=== PATIENT | female | born 1990 | race African-American/Black ===

== ENCOUNTER 2019-06-17 15:18 | Emergency (ER) | payer BC, OTHER ==
[2019-06-17 15:41] VITALS: BP 108/76; PULSE 102; TEMP 99.3; BMI 26.0
--- NOTE | 2019-06-17 15:41 | PDOC ---
Rapid Medical Evaluation Chief Complaint: Weakness Time Seen by Provider: 06/17/19 15:36 Medical Evaluation: Allergies Allergy/AdvReac Type Severity Reaction Status Date / Time shellfish derived Allergy Hives Verified 05/16/15 06:48 06/17/19 15:37 I have performed a brief in-person evaluation of this patient. The patient presents with a chief complaint of:HX of MS- c/o fevers/ bodyaches - no cough/ear or throat pain Pertinent physical exam findings: pale/ quiet- took cold med ~ 30ms ago I have ordered the following: Influenza The patient will proceed to the ED for further evaluation. 06/17/19 15:38 06/17/19 15:39 Discharge Disposition - Discharge Dispostion Condition at time of disposition: Stable - Referrals - Patient Instructions - Post Discharge Activity
--- NOTE | 2019-06-17 16:02 | PDOC ---
History of Present Illness - General Chief Complaint: Cold Symptoms Stated Complaint: COLD SYMPTOMS/WEAKNESS Time Seen by Provider: 06/17/19 15:36 History Source: Patient - History of Present Illness Initial Comments: 06/17/19 16:36 29-year-old female complaining of body aches, fever, sneezing since yesterday. Patient reports taking Tami-Rogers plus with no relief in pain. No past medical history Past History - Past Medical History Allergies/Adverse Reactions: Allergies Allergy/AdvReac Type Severity Reaction Status Date / Time shellfish derived Allergy Hives Verified 05/16/15 06:48 Home Medications: Ambulatory Orders predniSONE [Deltasone -] 50 mg PO DAILY 05/15/15 predniSONE [Deltasone -] 40 mg PO DAILY tablet 05/19/15 Oseltamivir Phosphate [Tamiflu -] 75 mg PO BID #10 capsule 06/17/19 COPD: No Other medical history: Mult Sclerosis - Psycho Social/Smoking Cessation Hx Smoking History: Never smoked Have you smoked in the past 12 months: Yes Number of Cigarettes Smoked Daily: 2 'Breaking Loose' booklet given: 05/16/15 Hx Alcohol Use: Yes (social use) Drug/Substance Use Hx: No Substance Use Type: None Hx Substance Use Treatment: No *Physical Exam - Vital Signs Last Vital Signs Temp Pulse Resp BP Pulse Ox 99.3 F 102 H 19 108/76 99 06/17/19 15:36 06/17/19 15:36 06/17/19 15:36 06/17/19 15:36 06/17/19 15:36 - Physical Exam General Appearance: Yes: Appropriately Dressed Respiratory/Chest: positive: Lungs Clear, Normal Breath Sounds Cardiovascular: positive: Regular Rhythm, Regular Rate Gastrointestinal/Abdominal: positive: Normal Bowel Sounds, Soft. negative: Tender Extremity: positive: Normal Capillary Refill, Normal Inspection, Normal Range of Motion Integumentary: positive: Normal Color, Dry, Warm Neurologic: positive: Fully Oriented, Alert ED Progress Note - Progress Note Progress Note: 06/17/19 16:40 A: influenza P: Tamiflu influenza B + PCP follow up Discharge - Discharge Information Problems reviewed: Yes Clinical Impression/Diagnosis: Influenza B Condition: Stable Disposition: HOME - Additional Discharge Information Prescriptions: Oseltamivir Phosphate [Tamiflu -] 75 mg PO BID #10 capsule - Follow up/Referral Referrals: Venice Matias MD [Primary Care Provider] - - Patient Discharge Instructions Patient Printed Discharge Instructions: Influenza Additional Instructions: Drink plenty of fluids. Take Tamiflu as prescribed Give Tylenol every 4 hours as needed for fever Give ibuprofen then every 6 hours as needed for fever Follow-up with your doctor as soon as possible. Return to the emergency room if symptoms worsen. - Post Discharge Activity Work/Back to School Note: Back to Work
[2019-06-17] MEDS ORDERED: ACETAMINOPHEN 500 MG TABLET (FP) PO ONE ×2 (16:03→16:32)
[2019-06-17] MEDS ORDERED: IBUPROFEN 600 MG TABLET (FP) PO ONE ×2 (16:26→16:30)
[2019-06-17] MEDS ORDERED: OSELTAMIVIR PHOSPHATE 75 MG CAPSULE PO ONE (16:30)
[2019-06-17] MEDS ORDERED: ACETAMINOPHEN 325 MG TABLET (FP) ONE ×2 (16:32→16:33)
[2019-06-17] MEDS ORDERED: OSELTAMIVIR PHOSPHATE 75 MG CAPSULE ONE (16:43)
== END 2019-06-17 16:58 | disposition home or self-care (01) ==
LOC: JERFT 15:18
DX: J10.1 Influenza due to other identified influenza virus with other respiratory manifestations (principal); G35 Multiple sclerosis; Z91.013 Allergy to seafood
CPT/HCPCS: 87804; 99282-25

== ENCOUNTER 2019-07-14 00:26 | Emergency (ER) | payer BC ==
[2019-07-14 01:22] VITALS: BP 114/74; PULSE 108; TEMP 100.7; BMI 27.1
[2019-07-14] MEDS ORDERED: ACETAMINOPHEN 500 MG TABLET (FP) PO ONE (01:37)
[2019-07-14] MEDS ORDERED: ACETAMINOPHEN 325 MG TABLET (FP) ONE (01:38)
--- NOTE | 2019-07-14 01:39 | PDOC ---
History of Present Illness - General Chief Complaint: Cold Symptoms Stated Complaint: FLU Time Seen by Provider: 07/14/19 01:36 History Source: Patient Exam Limitations: No Limitations - History of Present Illness Initial Comments: 07/14/19 01:37 HISTORY OF PRESENT ILLNESS: This a 29-year-old woman presents emergency department for evaluation of fevers, chills, myalgias, sore throat, moist productive cough. Patient reports she tested positive for influenza B in May and was treated at that time. Her son was tested and diagnosed with influenza A 2 days ago and patient is now experiencing similar symptoms. No recent travel or sick contacts. PAST MEDICAL HISTORY: Denies past medical history SURGICAL HISTORY: Denies ALLERGIES: No known drug allergies REVIEW OF SYSTEMS General/Constitutional: +fever. Denies weakness, weight change. HEENT: Denies change in vision. Denies ear pain or discharge. +sore throat. Cardiovascular: Denies chest pain or shortness of breath. Respiratory: Moist productive cough. Denies wheezing, or hemoptysis. Gastrointestinal: Denies nausea, vomiting, diarrhea or constipation. Denies rectal bleeding. Genitourinary: Denies dysuria, frequency, or change in urination. Musculoskeletal: +myalgias. Denies neck or back pain. Skin and breasts: Denies rash or easy bruising. Neurologic: Denies headache, vertigo, loss of consciousness, or loss of sensation. Psychiatric: Denies depression or anxiety. Endocrine: Denies increased thirst. Denies abnormal weight change. Hematologic/Lymphatic: Denies anemia, easy bleeding, or history of blood clots. Allergic/Immunologic: Denies hives or skin allergy. Denies latex allergy. PHYSICAL EXAM General Appearance: Well-appearing, appropriately dressed. No apparent distress , no intoxication. HEENT: EOMI, PERRLA, normal voice, TMs retracted bilaterally. No conjunctival pallor. No photophobia, scleral icterus. Oropharynx erythematous without lesions or exudate. Cobblestoning noted in the posterior. No nasal discharge present. Neck: Supple. Trachea midline. No tenderness, rigidity, carotid bruit, stridor , or thyromegaly. Nontender anterior cervical lymphadenopathy present. Respiratory/Chest: Lungs CTAB. No shortness of breath, chest tenderness, respiratory distress, accessory muscle use. No crackles, rales, rhonchi, stridor , wheezing, dullness Cardiovascular: RRR. S1, S2. No JVD, murmur, bradycardia, tachycardia. Vascular Pulses: Dorsalis-Pedis (R): 2+, Dorsalis-Pedis (L): 2+ Gastrointestinal/Abdominal: Normal bowel sounds. Abdomen soft, non-distended. No tenderness or rebound tenderness. No organomegaly, pulsatile mass, guarding, hernia, hepatomegaly, splenomegaly. Musculoskeletal/Extremities: Normal inspection. FROM of all extremities, normal capillary refill. Pelvis Stable. No CVA tenderness. No tenderness to extremities, pedal edema, swelling, erythema or deformity. Integumentary: Appropriate color, dry, warm. No cyanosis, erythema, jaundice or rash Neurologic: trial court justice II-XII intact. Fully oriented, alert. Appropriate mood/affect. Motor strength 5/5. No appreciable EOM palsy, facial droop or sensory deficit. 07/14/19 01:57 07/14/19 02:01 Past History - Past Medical History Allergies/Adverse Reactions: Allergies Allergy/AdvReac Type Severity Reaction Status Date / Time shellfish derived Allergy Hives Verified 07/14/19 00:51 Home Medications: Ambulatory Orders predniSONE [Deltasone -] 50 mg PO DAILY 05/15/15 predniSONE [Deltasone -] 40 mg PO DAILY tablet 05/19/15 Oseltamivir Phosphate [Tamiflu -] 75 mg PO BID #10 capsule 06/17/19 Oseltamivir Phosphate [Tamiflu -] 75 mg PO BID #10 capsule 07/14/19 COPD: No Other medical history: MS - Psycho Social/Smoking Cessation Hx Smoking History: Never smoked Have you smoked in the past 12 months: No Number of Cigarettes Smoked Daily: 2 Information on smoking cessation initiated: No 'Breaking Loose' booklet given: 05/16/15 Hx Alcohol Use: No Drug/Substance Use Hx: No Substance Use Type: None Hx Substance Use Treatment: No *Physical Exam - Vital Signs Last Vital Signs Temp Pulse Resp BP Pulse Ox 100.7 F H 108 H 18 114/74 100 07/14/19 00:48 07/14/19 00:48 07/14/19 00:48 07/14/19 00:48 07/14/19 00:48 Medical Decision Making - Medical Decision Making 07/14/19 01:37 A/P: 29-year-old woman with 1 day of flulike symptoms Patient's child is diagnosed with influenza patient is experiencing similar symptoms given high likelihood of a positive influenza test I will defer testing at this time and treat with Tamiflu as an outpatient. I discussed the physical exam findings, ancillary test results and final diagnoses with the patient. I answered all of the patient's questions. The patient was satisfied with the care received and felt comfortable with the discharge plan and treatment plan. The patient will call their primary care physician within 24 hours to arrange follow-up and will return to the Emergency Department with any new, persistent or worsening symptoms. Discharge - Discharge Information Problems reviewed: Yes Clinical Impression/Diagnosis: Influenza-like illness Condition: Fair Disposition: HOME - Admission No - Additional Discharge Information Prescriptions: Oseltamivir Phosphate [Tamiflu -] 75 mg PO BID #10 capsule - Follow up/Referral Referrals: Venice Matias MD [Primary Care Provider] - - Patient Discharge Instructions Additional Instructions: Rest, drink lots of fluids: Teas, water, soups, Pedialyte Saltwater gargles Steamy showers/seem to face break up mucus Old-fashioned treatments help! Avoid contact with others until fevers and cough resolved as this is very contagious Lots of handwashing and good hygiene Continue [id number] medications for symptomatic relief Tylenol or Motrin for fever and pain Take all of Tamiflu as directed: 1 tab every 12 hours for 5 days Followup with private physician in one to 2 days as needed or if worsening Return to emergency department for worsened symptoms, fevers, dehydration Influenza takes between 5 and 7 days for resolution Do not participate in any activity, work, or school until fevers and cough are gone for at least one day - Post Discharge Activity Work/Back to School Note: Back to Work
--- NOTE | 2019-07-14 01:56 | PDOC ---
*Physical Exam - Vital Signs Last Vital Signs Temp Pulse Resp BP Pulse Ox 100.7 F H 108 H 18 114/74 100 07/14/19 00:48 07/14/19 00:48 07/14/19 00:48 07/14/19 00:48 07/14/19 00:48 ED Treatment Course - Medications Given in the ED: ED Medications Discontinued Medications Generic Name Dose Route Start Last Admin Trade Name Giovanni PRN Reason Stop Dose Admin Acetaminophen 1,000 mg 07/14/19 01:37 07/14/19 01:53 Tylenol - PO 07/14/19 01:38 1,000 mg ONCE ONE Administration Medical Decision Making - Medical Decision Making 07/14/19 01:56 Patient seen by the advanced practice provider under my direct supervision. Ancillary testing reviewed as necessary. I agree with plan as outlined by the advanced practice provider. Discharge - Discharge Information Problems reviewed: Yes Clinical Impression/Diagnosis: Influenza-like illness Condition: Fair Disposition: HOME - Additional Discharge Information Prescriptions: Oseltamivir Phosphate [Tamiflu -] 75 mg PO BID #10 capsule - Follow up/Referral Referrals: Venice Matias MD [Primary Care Provider] - - Patient Discharge Instructions Additional Instructions: Rest, drink lots of fluids: Teas, water, soups, Pedialyte Saltwater gargles Steamy showers/seem to face break up mucus Old-fashioned treatments help! Avoid contact with others until fevers and cough resolved as this is very contagious Lots of handwashing and good hygiene Continue [id number] medications for symptomatic relief Tylenol or Motrin for fever and pain Take all of Tamiflu as directed: 1 tab every 12 hours for 5 days Followup with private physician in one to 2 days as needed or if worsening Return to emergency department for worsened symptoms, fevers, dehydration Influenza takes between 5 and 7 days for resolution Do not participate in any activity, work, or school until fevers and cough are gone for at least one day - Post Discharge Activity Work/Back to School Note: Back to Work
== END 2019-07-14 01:55 | disposition home or self-care (01) ==
LOC: JER 00:26
DX: J11.1 Influenza due to unidentified influenza virus with other respiratory manifestations (principal); Z91.013 Allergy to seafood
CPT/HCPCS: 99281-25

== ENCOUNTER 2021-05-27 17:35 | Inpatient (IN) | payer BC, OTHER ==
[2021-05-27 19:59] LABS: EOS % 2.6 % (0-4.5); HEMATOCRIT 37.9 % (32.4-45.2); HEMOGLOBIN 12.7 GM/dL (10.7-15.3); MCH 31.4 pg (25.7-33.7); MCHC 33.5 g/dl (32.0-36.0); MEAN CELL VOLUME 93.8 fl (80-96); MEAN PLT VOLUME 7.4 fl (7.5-11.1); MONO % 10.8 % (3.8-10.2); NEUT % 52.6 % (42.8-82.8); PLATELET COUNT 257 10^3/uL (134-434); RBC 4.03 M/mm3 (3.60-5.2); WHITE BLOOD COUNT 5.5 K/mm3 (4.0-10.0)
[2021-05-27 20:36] LABS: ALBUMIN 3.7 g/dl (3.4-5.0); CALCIUM 8.9 mg/dL (8.5-10.1)
[2021-05-27 20:37] LABS: BLOOD UREA NITROGEN 14.5 mg/dL (7-18)
[2021-05-27 20:40] LABS: CREATININE 0.7 mg/dL (0.55-1.3)
[2021-05-27 20:41] LABS: BILIRUBIN,TOTAL 0.6 mg/dL (0.2-1); TOT PROT 7.2 g/dl (6.4-8.2)
[2021-05-27] MEDS ORDERED: methylPREDNISolone NA SUCC 125 MG/2 ML VIAL IVPB ONE (21:09)
[2021-05-27] MEDS ORDERED: methylPREDNISolone NA SUCC 125 MG/2 ML VIAL ONE (21:32)
[2021-05-28 02:32] VITALS: BMI 28.0
[2021-05-28] MEDS ORDERED: ACETAMINOPHEN 325 MG TABLET (FP) PO PRN (03:40)
[2021-05-28 09:14] LABS: HEMATOCRIT 37.8 % (32.4-45.2); HEMOGLOBIN 12.8 GM/dL (10.7-15.3); MCH 31.6 pg (25.7-33.7); MEAN PLT VOLUME 7.5 fl (7.5-11.1); PLATELET COUNT 277 10^3/uL (134-434); RBC 4.06 M/mm3 (3.60-5.2); RDW 13.1 % (11.6-15.6); WHITE BLOOD COUNT 6.6 K/mm3 (4.0-10.0)
[2021-05-28] MEDS: ENOXAPARIN NA (PORCINE) 40 MG/0.4 ML DISP.SYRIN SQ SCH (09:35)
[2021-05-28 09:50] LABS: ALBUMIN 3.7 g/dl (3.4-5.0); CALCIUM 8.9 mg/dL (8.5-10.1)
[2021-05-28 09:53] LABS: CREATININE 0.6 mg/dL (0.55-1.3)
[2021-05-28 09:55] LABS: BILIRUBIN,TOTAL 0.6 mg/dL (0.2-1); TOT PROT 7.5 g/dl (6.4-8.2)
[2021-05-28 10:05] LABS: ANISOCYTOSIS 1+; MACROCYTOSIS 0; OVALOCYTE 2+; PLATELET ESTIMATE NORMAL
[2021-05-28] MEDS ORDERED: PT OWN MED DRAWER 7, Y5N ONE (19:18)
[2021-05-29 08:37] LABS: HEMATOCRIT 34.9 % (32.4-45.2); HEMOGLOBIN 11.5 GM/dL (10.7-15.3); MCH 31.3 pg (25.7-33.7); MCHC 32.9 g/dl (32.0-36.0); MEAN PLT VOLUME 7.9 fl (7.5-11.1); PLATELET COUNT 246 10^3/uL (134-434); RBC 3.68 M/mm3 (3.60-5.2); RDW 12.9 % (11.6-15.6); WHITE BLOOD COUNT 8.3 K/mm3 (4.0-10.0)
[2021-05-29 09:23] LABS: CALCIUM 8.5 mg/dL (8.5-10.1)
[2021-05-29 09:24] LABS: ALBUMIN 3.1 g/dl (3.4-5.0); BLOOD UREA NITROGEN 15.8 mg/dL (7-18)
[2021-05-29 09:27] LABS: CREATININE 0.6 mg/dL (0.55-1.3)
[2021-05-29 09:28] LABS: TOT PROT 6.3 g/dl (6.4-8.2)
[2021-05-29 09:29] LABS: BILIRUBIN,TOTAL 0.5 mg/dL (0.2-1)
[2021-05-29] MEDS: ENOXAPARIN NA (PORCINE) 40 MG/0.4 ML DISP.SYRIN SQ SCH (09:51)
[2021-05-29] MEDS: methylPREDNISolone NA SUCC 125 MG/2 ML VIAL IVPUSH SCH ×3 (13:20→21:09)
[2021-05-29] MEDS ORDERED: PT OWN MED DRAWER 7, Y5N ONE ×3 (17:26→20:43)
[2021-05-30] MEDS: methylPREDNISolone NA SUCC 125 MG/2 ML VIAL IVPUSH SCH (02:20)
[2021-05-30 08:10] LABS: HEMATOCRIT 37.3 % (32.4-45.2); HEMOGLOBIN 12.4 GM/dL (10.7-15.3); MCH 31.1 pg (25.7-33.7); MCHC 33.2 g/dl (32.0-36.0); MEAN CELL VOLUME 93.6 fl (80-96); RBC 3.99 M/mm3 (3.60-5.2); RDW 12.8 % (11.6-15.6); WHITE BLOOD COUNT 14.4 K/mm3 (4.0-10.0)
[2021-05-30 08:11] LABS: MEAN PLT VOLUME 7.6 fl (7.5-11.1); PLATELET COUNT 273 10^3/uL (134-434)
[2021-05-30 08:30] LABS: ALBUMIN 3.2 g/dl (3.4-5.0); BLOOD UREA NITROGEN 10.1 mg/dL (7-18); CALCIUM 9.2 mg/dL (8.5-10.1)
[2021-05-30 08:33] LABS: CREATININE 0.6 mg/dL (0.55-1.3)
[2021-05-30 08:35] LABS: BILIRUBIN,TOTAL 0.3 mg/dL (0.2-1)
[2021-05-30 09:15] LABS: ANISOCYTOSIS 0; MACROCYTOSIS 0; PLATELET ESTIMATE NORMAL
[2021-05-30] MEDS: methylPREDNISolone NA SUCC 125 MG/2 ML VIAL IVPB SCH ×3 (09:51→22:00)
[2021-05-30] MEDS: ENOXAPARIN NA (PORCINE) 40 MG/0.4 ML DISP.SYRIN SQ SCH (09:51)
[2021-05-30] MEDS: GABAPENTIN 300 MG CAPSULE PO SCH ×2 (13:40→22:54)
[2021-05-31] MEDS ORDERED: CYCLOBENZAPRINE HCL 5 MG TABLET PO ONE (00:10)
[2021-05-31] MEDS: methylPREDNISolone NA SUCC 125 MG/2 ML VIAL IVPB SCH ×2 (02:29→10:10)
[2021-05-31] MEDS: GABAPENTIN 300 MG CAPSULE PO SCH (06:10)
[2021-05-31 07:14] VITALS: BP 111/63; PULSE 80; TEMP 97.7
[2021-05-31] MEDS: ENOXAPARIN NA (PORCINE) 40 MG/0.4 ML DISP.SYRIN SQ SCH (09:12)
[2021-05-31] MEDS ORDERED: PT OWN MED DRAWER 7, Y5N ONE (09:29)
== END 2021-05-31 15:03 | disposition home or self-care (01) | DRG 43 ==
LOC: JER 17:35 → JERBED 21:10 → J8W 05-28 02:06 → OBSVTOIN 05-29 14:42
DX: G35 Multiple sclerosis (principal); M50.21 Other cervical disc displacement, high cervical region; R20.2 Paresthesia of skin
CPT/HCPCS: 36415; 70450-TC; 70553-TC; 72156-TC; 80053; 82136; 82607; 82746; 83918; 84443; 84703; 85025; 85027; 87804; 87807; 93005; 93010; 99285-25; A9579; C9803; G0378; U0003; U0005

== ENCOUNTER 2022-11-11 00:20 | Emergency (ER) | payer OTHER ==
[2022-11-11 00:37] VITALS: BP 133/96; PULSE 102; RESP 20; BMI 28.3
== END 2022-11-11 04:00 | disposition home or self-care (01) ==
LOC: JER 00:20
DX: S02.2XXA Fracture of nasal bones, initial encounter for closed fracture (principal); J34.89 Other specified disorders of nose and nasal sinuses; R22.0 Localized swelling, mass and lump, head; S02.31XA Fracture of orbital floor, right side, initial encounter for closed fracture; V48.1XXA Car passenger injured in noncollision transport accident in nontraffic accident, initial encounter
CPT/HCPCS: 70486-TC; 99284-25